=== PATIENT | male | born 1995 | race American Indian/Alaskan Native ===

== ENCOUNTER 2021-02-24 21:43 | Emergency (ER) | payer SELFPAY ==
[2021-02-24] MEDS ORDERED: traMADol 50 MG TAB PO ONE (22:09)
[2021-02-24] MEDS ORDERED: LIDOCAINE (1%) 10 MG/1 ML VIAL 20 ML MDV INFILTRATI ONE (22:09)
[2021-02-24] MEDS ORDERED: cephALEXin 500 MG CAP PO ONE (22:09)
[2021-02-24 22:10] VITALS: BP 108/56
--- NOTE | 2021-02-24 22:13 | Emergency Department Report ---
- General Chief Complaint: Laceration/Recheck/Suture Stated Complaint: LACERATION Time Seen by Provider: 02/24/21 22:08 Source: patient Mode of arrival: Ambulatory Limitations: No Limitations - History of Present Illness Initial Comments: 25-year-old male who presents for laceration to right palm right palm with mild nail damage states he was striking and eroded and broke his broom handle causing laceration to his hand. Patient denies foreign body sensation however is prolonged bleeding on scene. Patient arrived to ED via POV patient is alert oriented x3 ambulatory with bleeding is controlled at this time. No numbness tingling no obvious deformity. Range of motion remains intact. - Related Data Previous Rx's Medication Instructions Recorded Last Taken Type Neomycin/Bacitracin/Polymyxinb 1 applicatio TP BID #1 tube 02/24/21 Unknown Rx [Triple Antibiotic Ointment] cephALEXin [Keflex] 500 mg PO Q8HR 7 Days #21 cap 02/24/21 Unknown Rx traMADoL [Ultram] 50 mg PO Q6HR PRN #12 tablet 02/24/21 Unknown Rx ED Review of Systems ROS: Stated complaint: LACERATION Other details as noted in HPI Constitutional: denies: chills, fever Eyes: denies: eye pain, eye discharge, vision change ENT: denies: ear pain, throat pain Respiratory: denies: cough, shortness of breath, wheezing Cardiovascular: denies: chest pain, palpitations Endocrine: no symptoms reported Gastrointestinal: denies: abdominal pain, nausea, diarrhea Genitourinary: denies: urgency, dysuria Musculoskeletal: denies: back pain, joint swelling, arthralgia Skin: other (laceration right hand and thumb ) Neurological: denies: headache, weakness, paresthesias Psychiatric: denies: anxiety, depression Hematological/Lymphatic: denies: easy bleeding, easy bruising ED Past Medical Hx - Past Medical History Previous Medical History?: No - Surgical History Past Surgical History?: No - Medications Home Medications: Home Medications Medication Instructions Recorded Confirmed Last Taken Type Neomycin/Bacitracin/Polymyxinb 1 applicatio TP BID #1 tube 02/24/21 Unknown Rx [Triple Antibiotic Ointment] cephALEXin [Keflex] 500 mg PO Q8HR 7 Days #21 cap 02/24/21 Unknown Rx traMADoL [Ultram] 50 mg PO Q6HR PRN #12 tablet 02/24/21 Unknown Rx ED Physical Exam - General Limitations: No Limitations General appearance: alert, in no apparent distress - Head Head exam: Present: atraumatic, normocephalic - Eye Eye exam: Present: normal appearance, EOMI Pupils: Present: normal accommodation - ENT ENT exam: Present: mucous membranes moist - Neck Neck exam: Present: normal inspection, full ROM - Respiratory Respiratory exam: Present: normal lung sounds bilaterally. Absent: respiratory distress - Cardiovascular Cardiovascular Exam: Present: regular rate, normal rhythm, normal heart sounds. Absent: systolic murmur, diastolic murmur, rubs, gallop - GI/Abdominal GI/Abdominal exam: Present: soft, normal bowel sounds - Rectal Rectal exam: Present: deferred - Extremities Exam Extremities exam: Present: full ROM, other (laceration righ thumb partial nail avulsion laceration right hand palm ) - Back Exam Back exam: Present: normal inspection, full ROM. Absent: tenderness - Neurological Exam Neurological exam: Present: alert, oriented X3 - Psychiatric Psychiatric exam: Present: normal affect, normal mood - Skin Skin exam: Present: warm, dry, normal color. Absent: intact (laceration as abov e ), rash ED Course Vital Signs 02/24/21 21:50 Temperature 98.9 F Pulse Rate 60 Respiratory 18 Rate Blood Pressure 108/56 [Right] O2 Sat by Pulse 98 Oximetry ED Medical Decision Making - Radiology Data Radiology results: report reviewed, image reviewed RIGHT HAND 2 VIEW(S) INDICATION / CLINICAL INFORMATION: laceration blunt trauma COMPARISON: None available. FINDINGS: BONES / JOINT(S): No acute fracture or subluxation. No significant arthritis. SOFT TISSUES: No significant abnormality. ADDITIONAL FINDINGS: None. Signer Name: Brandon Santiago MD Signed: 02/24/2021 10:25 PM Workstation Name: [id number] - Medical Decision Making Xray fracture no foreign body, patient declines removal of partial nail damage. There is no active bleeding no deep laceration from his deep abrasion. Range of motion is intact strength is 5 /5 flexion extension intact to direct opposition. Patient given wound care instructions including symptoms of infection.. DC to home with prescriptions including antibiotics. Tetanus is up-to-date. Sterile dressing is applied. Follow-up primary care in 2 to 3 days for wound check. Patient will return to ED if symptoms worsen. Critical care attestation.: If time is entered above; I have spent that time in minutes in the direct care of this critically ill patient, excluding procedure time. ED Disposition Clinical Impression: Nail avulsion, finger Qualifiers: Encounter type: initial encounter Qualified Code(s): S61.309A - Unspecified open wound of unspecified finger with damage to nail, initial encounter Abrasion, hand Qualifiers: Encounter type: initial encounter Laterality: right Qualified Code(s): S60.511A - Abrasion of right hand, initial encounter Disposition: HOME / SELF CARE / HOMELESS Is pt being admited?: No Does the pt Need Aspirin: No Condition: Stable Instructions: Wound Care, Adult, Abrasion Additional Instructions: Clean wound daily with soap and water, apply Neosporin as directed. Sterile dressing as directed. Follow-up with your primary care doctor in 2 days for wound check. Turn to emergency department should symptoms worsen. Prescriptions: cephALEXin [Keflex] 500 mg PO Q8HR 7 Days #21 cap Neomycin/Bacitracin/Polymyxinb [Triple Antibiotic Ointment] 1 applicatio TP BID #1 tube traMADoL [Ultram] 50 mg PO Q6HR PRN #12 tablet PRN Reason: Pain Referrals: [facility] [Provider Group] - 3-5 Days Forms: Work/School Release Form(ED) Time of Disposition: 22:59
--- NOTE | 2021-02-24 22:29 | XRay Report ---
RIGHT HAND 2 VIEW(S) INDICATION / CLINICAL INFORMATION: laceration blunt trauma COMPARISON: None available. FINDINGS: BONES / JOINT(S): No acute fracture or subluxation. No significant arthritis. SOFT TISSUES: No significant abnormality. ADDITIONAL FINDINGS: None. Signer Name: Brandon Santiago MD Signed: 02/24/2021 10:25 PM Workstation Name: [id number]
== END 2021-02-25 01:29 | disposition home or self-care (01) ==
LOC: ED 21:43
DX: S61.309A Unspecified open wound of unspecified finger with damage to nail, initial encounter (principal); S60.511A Abrasion of right hand, initial encounter; X58.XXXA Exposure to other specified factors, initial encounter; Y93.89 Activity, other specified; Y92.89 Other specified places as the place of occurrence of the external cause; Y99.8 Other external cause status
CPT/HCPCS: 99283